=== PATIENT | male | born 1995 | race Caucasian/White ===

== ENCOUNTER 2020-09-15 20:35 | Emergency (ER) | payer MEDICAID, OTHER ==
[~2020-09-15] VITALS: Ht 167.6 cm; Wt 56.8 kg
[2020-09-15 21:03] VITALS: BP 114/78
== END 2020-09-15 22:50 | disposition home or self-care (01) ==
LOC: ER 20:36
DX: R07.81 Pleurodynia (principal)
CPT/HCPCS: 71046; 99283

== ENCOUNTER 2020-10-29 06:31 | Emergency (ER) | payer MEDICAID ==
[~2020-10-29] VITALS: Ht 167.6 cm; Wt 56.0 kg
--- NOTE | 2020-10-29 06:47 | NUR ---
WHEN CALLED TO TRIAGE PT STATES HE NEEDS TO VOMIT AND RUNS TO THE BATHROOM.
[2020-10-29] MEDS ORDERED: ondansetron/PF 4mg/2ml inj IV ONE (07:15)
[2020-10-29] MEDS ORDERED: normal saline 1000ML IV soln IVB ONE ×3 (07:15→10:05)
[2020-10-29 07:57] LABS: BASOPHILS % (AUTO) 0.2 % (0-1); EOSINOPHILS # (AUTO) 0.1 X10'3 (0-0.9); EOSINOPHILS % (AUTO) 0.6 % (0-6); HEMATOCRIT 54.7 % (42.0-52.0); LYMPHOCYTES # (AUTO) 0.5 X10'3 (1.1-4.8); LYMPHOCYTES % (AUTO) 2.8 % (21-51); MEAN CORPUSCULAR HEMOGLOBIN 30.1 PG (27.0-31.0); MEAN CORPUSCULAR HGB CONC 34.1 g/dL (33.0-36.5); MEAN CORPUSCULAR VOLUME 88.3 FL (78-98); MEAN PLATELET VOLUME 9.2 FL (7.4-10.4); MONOCYTES # (AUTO) 0.9 X10'3 (0-0.9); MONOCYTES % (AUTO) 5.2 % (2-12); NEUTROPHILS % (AUTO) 91.2 % (42-75); PLATELET COUNT 296 X10'3 (140-440); RED BLOOD COUNT 6.19 X10'6 (4.70-6.10); WHITE BLOOD COUNT 17.5 X10'3 (4.5-11.0)
[2020-10-29 08:01] LABS: HEMOGLOBIN 18.6 g/dl (14.0-17.9)
[2020-10-29 08:10] LABS: ALANINE AMINOTRANSFERASE 28 U/L (12-78); ALBUMIN 5.1 G/DL (3.4-5.0); ALBUMIN/GLOBULIN RATIO 1.4 (1.1-1.5); ALKALINE PHOSPHATASE 115 IU/L (46-116); AMYLASE 63 U/L (25-115); ANION GAP 11 (8-16); ASPARTATE AMINO TRANSFERASE 20 U/L (10-37); BILIRUBIN,TOTAL 1.8 MG/DL (0.1-1.0); BLOOD UREA NITROGEN 15 MG/DL (7-18); CALCIUM 9.6 MG/DL (8.5-10.1); CHLORIDE 103 MMOL/L (99-107); ETHANOL < 0.010 GM/DL (0.0-0.010); GLUCOSE 127 MG/DL (70-104); LIPASE 90 U/L (73-393); POTASSIUM 4.3 MMOL/L (3.5-5.1); SODIUM 141 MMOL/L (135-145); TOTAL CARBON DIOXIDE 27.3 MMOL/L (24-32); TOTAL PROTEIN 8.7 G/DL (6.4-8.2); eGFR > 90 ML/MIN
[2020-10-29] MEDS ORDERED: proCHLORperazine 10 MG/2 ml inj IV ONE (10:05)
[2020-10-29 10:25] VITALS: BP 104/61
--- NOTE | 2020-10-29 10:40 | NUR ---
Pt stated that he felt that his NS bolus was causing him to become anxious, and felt as though he was "crawling out of his own skin". Requested bolus be stopped. aware.
[2020-10-29 11:18] LABS: CLARITY,URINE CLEAR (Clear); COLOR,URINE YELLOW (Yellow); GLUCOSE, URINE NEGATIVE (Neg); KETONES,URINE NEGATIVE (Neg); LEUKOCYTE ESTERASE ,URINE NEGATIVE (Neg); NITRITES, URINE NEGATIVE (Neg); OCCULT BLOOD,URINE NEGATIVE (Neg); PH,URINE 5.5 (4.8-8.0); PROTEIN,URINE NEGATIVE (Neg); UROBILINOGEN,URINE 0.2 E.U/dL (0.2-1.0)
[2020-10-29 11:19] LABS: UA COLLECTION TYPE CLN CATCH MIDSTREAM
--- NOTE | 2020-10-29 11:30 | NUR ---
Pt disconnected IV himself, stating he is too anxious and needs to walk around. Requesting to leave. I informed MD King, who states he will write discharge paperwork for the patient.
--- NOTE | 2020-10-29 11:53 | NUR ---
PT STATED THAT HIS BOSS CALLED HIM AND HE NEEDED TO GO TO WORK. THEN STATED HE WAS UNABLE TO WAIT FOR DISCHARGE PAPERWORK AND LEFT THE ED WITH A STEADY GAIT.
[2020-10-29 11:57] LABS: URINE AMPHETAMINE SCREEN NEGATIVE (Neg); URINE BARBITUATE SCREEN NEGATIVE (Neg); URINE BENZODIAZEPINES SCREEN NEGATIVE (Neg); URINE CANNABINOID SCREEN NEGATIVE (Neg); URINE COCAINE SCREEN NEGATIVE (Neg); URINE METHADONE SCREEN NEGATIVE (Neg); URINE OPIATE SCREEN NEGATIVE (Neg); URINE PHENCYCLIDINE SCREEN NEGATIVE (Neg)
[2020-10-29] MEDS ORDERED: ONDA4TAB6 PO (11:57)
== END 2020-10-29 12:01 | disposition home or self-care (01) ==
LOC: ER 06:31
DX: K52.9 Noninfective gastroenteritis and colitis, unspecified (principal); E86.0 Dehydration; Z79.899 Other long term (current) drug therapy
CPT/HCPCS: 36415; 80053; 80305; 80320; 81003; 82150; 83690; 83735; 85025; 96361; 96374; 96375; 99284; J0780; J2405; J7030